=== PATIENT | male | born 1950 | race Native Hawaiian/Other Pacific Islander ===

== ENCOUNTER 2019-08-05 19:15 | Emergency (ER) | payer OTHER ==
[~2019-08-05] VITALS: Ht 177.8 cm; Wt 71.2 kg
[2019-08-05 19:36] VITALS: TEMP 98.2
[2019-08-05 19:54] LABS: PLATELET COUNT 789 K/uL (142-355)
[2019-08-05 20:01] LABS: POTASSIUM 3.7 mmol/L (3.6-5.2)
[2019-08-05 21:29] VITALS: BP 110/60
[2019-08-06] MEDS ORDERED: ASA LOW DOSE81 MG PO (09:37)
[2019-08-06] MEDS ORDERED: CARV3.12 PO (09:38)
[2019-08-06] MEDS ORDERED: LIPITOR40 MG PO (09:38)
[2019-08-06] MEDS ORDERED: CORRECTOL100 MG PO (09:39)
[2019-08-06] MEDS ORDERED: ROWEEPRA XR500 MG PO (09:40)
[2019-08-06] MEDS ORDERED: LEVE500T5 PO (09:40)
[2019-08-06] MEDS ORDERED: QUETIAPINE25 MG PO (09:41)
[2019-08-06] MEDS ORDERED: SEROQUEL50 MG PO (09:42)
[2019-08-06] MEDS ORDERED: VITAMIN D32000 UNI1 PO (09:43)
== END 2019-08-05 21:29 | disposition other institution (70) ==
LOC: ED 19:15
PROVIDERS: Emergency Medicine
DX: F28 Other psychotic disorder not due to a substance or known physiological condition (principal); Z04.6 Encounter for general psychiatric examination, requested by authority
CPT/HCPCS: 36415; 80053; 85027; 93005; 99285

== ENCOUNTER 2019-10-08 11:44 | Emergency (ER) | payer OTHER ==
[~2019-10-08] VITALS: Ht 177.8 cm; Wt 72.3 kg
[2019-10-08 11:44] VITALS: TEMP 98.1
[~2019-10-08 11:44] MED LIST: ASA LOW DOSE81 MG PO; CARV3.12 PO; CORRECTOL100 MG PO; DONE5TAB PO; ESCI10TA PO; LEVE500T5 PO; LIPITOR40 MG PO; MEMA5TAB PO; QUETIAPINE25 MG PO; ROWEEPRA XR500 MG PO; SEROQUEL50 MG PO; VITAMIN D32000 UNI1 PO
[2019-10-08 12:31] LABS: PLATELET COUNT 1153 K/uL (142-355)
[2019-10-08 13:09] VITALS: BP 133/60
[2019-10-20] MEDS ORDERED: OXCARBAZEPIN300 MG PO (22:57)
[2019-10-20] MEDS ORDERED: CHOL100034 PO (22:58)
[2019-10-20] MEDS ORDERED: MEMA5TAB PO (22:58)
[2019-10-20] MEDS ORDERED: ESCI10TA PO (22:58)
[2019-10-20] MEDS ORDERED: OLAN10INJ IM (22:58)
[2019-10-20] MEDS ORDERED: DONE5TAB PO (22:58)
[2019-10-20] MEDS ORDERED: LEVE500T5 PO (22:58)
[2019-10-20] MEDS ORDERED: DOCU100C10 PO (22:58)
[2019-10-20] MEDS ORDERED: ATOR20TA2 PO (22:58)
[2019-10-20] MEDS ORDERED: ASPIRIN325 M1 PO (22:59)
== END 2019-10-08 13:10 | disposition other institution (70) ==
LOC: ED 11:50
PROVIDERS: Emergency Medicine
DX: F01.51 Vascular dementia, unspecified severity, with behavioral disturbance (principal); R00.1 Bradycardia, unspecified; Z04.6 Encounter for general psychiatric examination, requested by authority
CPT/HCPCS: 80053; 84484; 85027; 93005; 99285